=== PATIENT | female | born 2000 | race American Indian/Alaskan Native ===

== ENCOUNTER 2020-09-30 12:27 | Emergency (ER) | payer OTHER ==
[2020-09-30 12:49] VITALS: BP 113/72; PULSE 78
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
[2020-09-30] MEDS ORDERED: cefTRIAXone 1 GM, Lidocaine 1% 2.1 ML IM ONE ×2 (13:53)
[2020-09-30] MEDS ORDERED: Doxycycline Monohydrate 100 MG Cap PO ONE (13:53)
[2020-10-06 13:43] LABS: C.TRACHOMATIS BY TMA Negative (Negative); N.GONORRHOEAE BY TMA Negative (Negative)
== END 2020-09-30 14:41 | disposition home or self-care (01) ==
LOC: DL.ED 12:27
DX: T76.21XA Adult sexual abuse, suspected, initial encounter (principal); Z20.2 Contact with and (suspected) exposure to infections with a predominantly sexual mode of transmission; Z72.0 Tobacco use
CPT/HCPCS: 80074; 81003; 81025; 87389; 87491; 87563; 87591; 96372; 99284; A9270; J0696; 36415; 99283

== ENCOUNTER 2020-10-04 22:48 | Emergency (ER) | payer OTHER ==
[2020-10-04 22:56] VITALS: BP 113/81; PULSE 88
[2020-10-04] MEDS ORDERED: Ondansetron 4 MG Tab.DIS PO ONE (23:06)
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
== END 2020-10-04 23:44 | disposition home or self-care (01) ==
LOC: DL.ED 22:48
DX: R11.0 Nausea (principal); F41.9 Anxiety disorder, unspecified; Z79.899 Other long term (current) drug therapy
CPT/HCPCS: 80305; 81003; 81025; 99282; 99283; A9270

== ENCOUNTER 2021-02-19 05:29 | Emergency (ER) | payer BC, OTHER ==
[2021-02-19 05:38] VITALS: BP 121/76; PULSE 117
[2021-02-19] MEDS ORDERED: Sodium Chloride 0.9% 1,000 ML IV ONE (06:59)
[2021-02-19] MEDS ORDERED: Amoxicillin/Clavulanate K 875-125 MG Tab PO ONE (06:59)
[2021-02-19] MEDS ORDERED: Ketorolac 30 MG/ML SDV IVPUSH ONE (06:59)
--- NOTE | 2021-02-19 07:05 | EDM.PDOC ---
ED HPI GENERAL MEDICAL PROBLEM - General Chief Complaint: ENT Problem Stated Complaint: SINUS IS GETTING WORSE, DRAINAGE IS HORRIBLE Time Seen by Provider: 02/19/21 06:55 Source of Information: Reports: Patient History Limitations: Reports: No Limitations - History of Present Illness INITIAL COMMENTS - FREE TEXT/NARRATIVE: This 20 yo female patient reports to the ED with a migraine headache and a sinus infection. The patient reports she was seen in the Clinic twice over the past 1 1/2 weeks ([facility] and [facility]) and has been treated with a nasal spray as well as with pseudoephedrine with little to no changes in symptoms. Onset Date: 02/08/21 Duration: Constant, Getting Worse Location: Reports: Head, Face Quality: Reports: Ache, Dull, Pressure Severity: Moderate Improves with: Reports: None Worsens with: Reports: None Context: Reports: Other Associated Symptoms: Reports: cough w sputum, Fever/Chills Treatments CHIEF CLINICAL OFFICER: Reports: Acetaminophen, NSAIDS Face/Facial Pain Score (Numeric/FACES): 9 - Related Data Allergies Allergy/AdvReac Type Severity Reaction Status Date / Time No Known Allergies Allergy Verified 02/19/21 05:38 Past Medical History - Past Health History Medical/Surgical History: Denies Medical/Surgical History HEENT History: Reports: Impaired Vision Other HEENT History: wears glasses Cardiovascular History: Reports: None Respiratory History: Reports: None Gastrointestinal History: Reports: Cholelithiasis, GERD Genitourinary History: Reports: None 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 arm Neurological History: Reports: Migraines Psychiatric History: Reports: Anxiety, Depression Endocrine/Metabolic History: Reports: None Hematologic History: Reports: None Immunologic History: Reports: None Oncologic (Cancer) History: Reports: None Dermatologic History: Reports: None - Infectious Disease History Infectious Disease History: Reports: Novel Coronavirus - Past Surgical History Head Surgeries/Procedures: Reports: None HEENT Surgical History: Reports: None GI Surgical History: Reports: Cholecystectomy Social & Family History - Family History Family Medical History: No Pertinent Family History - Tobacco Use Tobacco Use Status *Q: Never Tobacco User Second Hand Smoke Exposure: No - Caffeine Use Caffeine Use: Reports: None - Recreational Drug Use Recreational Drug Use: No - Living Situation & Occupation Living situation: Reports: with Family ED ROS ENT - Review of Systems Review Of Systems: Comprehensive ROS is negative, except as noted in HPI. ED EXAM, ENT - Physical Exam Exam: See Below Exam Limited By: No Limitations General Appearance: Alert, WD/WN, Moderate Distress Eye Exam: Bilateral Eye: EOMI, Normal Inspection, PERRL Ears: Normal External Exam, Normal Canal, Hearing Grossly Normal, Other Nose: Clear Rhinorrhea (TM retraction) Mouth/Throat: Normal Inspection, Normal Gums, Normal Lips, Normal Oropharynx, Normal Teeth Head: Facial Tenderness, Sinus Tenderness Neck: Normal Inspection, Supple, Non-Tender, Full Range of Motion Respiratory/Chest: No Respiratory Distress, Lungs Clear, Normal Breath Sounds, No Accessory Muscle Use, Chest Non-Tender Cardiovascular: Normal Peripheral Pulses, Regular Rate, Rhythm, No Edema, No Gallop, No JVD, No Murmur, No Rub GI/Abdominal: Normal Bowel Sounds, Soft, Non-Tender, No Organomegaly, No Distention, No Abnormal Bruit, No Mass (Female) Exam: Deferred Rectal (Female) Exam: Deferred Back: Normal Inspection, Full Range of Motion Extremities: Normal Inspection, Normal Range of Motion, Non-Tender, No Pedal Edema, Normal Capillary Refill Neurological: Alert, Oriented, CN II-XII Intact, Normal Cognition, Normal Gait, Normal Reflexes, No Motor/Sensory Deficits Psychiatric: Normal Affect, Normal Mood Skin: Warm, Dry, Intact, Normal Color, No Rash Lymphatic: No Adenopathy Course - Vital Signs Last Recorded V/S: Last Vital Signs Temp 98.2 F 02/19/21 05:34 Pulse 117 H 02/19/21 05:34 Resp 18 02/19/21 05:34 BP 121/76 02/19/21 05:34 Pulse Ox 96 02/19/21 05:34 - Orders/Labs/Meds Meds: Medications Discontinued Medications Generic Name Dose Route Start Last Admin Trade Name Freq PRN Reason Stop Dose Admin Amoxicillin/Clavulanate Potassium 1 tab 02/19/21 06:59 02/19/21 07:06 Amoxicillin/Clavulanate K 875-125 Mg Tab PO 02/19/21 07:00 1 tab ONETIME ONE Administration Sodium Chloride 1,000 mls @ 999 mls/hr 02/19/21 06:59 02/19/21 07:06 Normal Saline IV 02/19/21 07:59 999 mls/hr .BOLUS ONE Administration Ketorolac Tromethamine 30 mg 02/19/21 06:59 02/19/21 07:06 Ketorolac 30 Mg/Ml Sdv IVPUSH 02/19/21 07:00 30 mg ONETIME ONE Administration Departure - Departure Time of Disposition: 08:38 Disposition: Home, Self-Care 01 Condition: Fair Clinical Impression: Acute sinusitis Qualifiers: Sinusitis location: frontal Recurrence: non-recurrent Qualified Code(s): J01.10 - Acute frontal sinusitis, unspecified Migraine Qualifiers: Migraine type: unspecified Status migrainosus presence: without status migrainosus Intractability: intractable Qualified Code(s): G43.919 - Migraine, unspecified, intractable, without status migrainosus - Discharge Information *PRESCRIPTION DRUG MONITORING PROGRAM REVIEWED*: Not Applicable *COPY OF PRESCRIPTION DRUG MONITORING REPORT IN PATIENT [place]: Not Applicable Instructions: Sinusitis, Adult, [id number], Migraine Headache, [id number] Forms: ED Department Discharge Care Plan Goals: The patient was advised of the examination results during the visit. The patient was given a liter of IV fluids, IV Toradol and oral Augmentin during the visit. The patient was discharged with a script for Augmentin (500/125) #20 to take 1 by mouth 2 times per day for 10 days. If the patient has any additional symptoms or concerns, the patient should either return to the emergency department or visit her primary care facility. Sepsis Event Note (ED) - Evaluation Sepsis Screening Result: No Definite Risk - Focused Exam Vital Signs: Vital Signs Temp Pulse Resp BP Pulse Ox 02/19/21 05:34 98.2 F 117 H 18 121/76 96
== END 2021-02-19 08:42 | disposition home or self-care (01) ==
LOC: DL.ED 05:29
DX: G43.919 Migraine, unspecified, intractable, without status migrainosus (principal); J01.10 Acute frontal sinusitis, unspecified
CPT/HCPCS: 96374; 99283; A9270; J1885; J7030

== ENCOUNTER 2021-03-10 05:22 | Emergency (ER) | payer BC, OTHER ==
[2021-03-10 05:44] VITALS: BP 111/71; PULSE 84
[2021-03-10] MEDS ORDERED: Sodium Chloride 0.9% 1,000 ML IV ONE (06:45)
[2021-03-10] MEDS ORDERED: Ondansetron 4 MG/2 ML SDV IVPUSH ONE (06:49)
--- NOTE | 2021-03-10 06:58 | EDM.PDOC ---
"ED HPI GENERAL MEDICAL PROBLEM - General Source of Information: Reports: Patient History Limitations: Reports: No Limitations - History of Present Illness Onset Date: 03/08/21 Duration: Constant Location: Reports: Head Quality: Reports: Other Severity: Moderate Improves with: Reports: None Worsens with: Reports: None Context: Reports: Other Associated Symptoms: Reports: Nausea/Vomiting Headache Pain Score (Numeric/FACES): 9 <Landry Bruce - Last Filed: 03/10/21 06:47> - General Source of Information: Reports: Patient, Old Records, RN, RN Notes Reviewed History Limitations: Reports: No Limitations <Saturnino Arshad - Last Filed: 03/10/21 09:22> - General Chief Complaint: Head Injury Stated Complaint: PT BLACKING OUT HAD MIGRAINES FOR 2DAYS Time Seen by Provider: 03/10/21 06:40 - History of Present Illness INITIAL COMMENTS - FREE TEXT/NARRATIVE: This 20 yo female patient reports to the ED due to a headache over the past 3 days. The patient reports she has had multiple episodes of blacking out and has hit her head several times due to blacking out. The patient does have a history of migraine headaches with similar symptoms. The patient reports she has been eating and drinking normally, but also feels nauseated. (Landry Bruce) I assumed care of pt from Landry CAMPO at 0700HR shift change. Pt continues to c/o headache. She claims she has fainted about 3 time earlier this week. She is unsure if the fainting is related to her headache or pain or if it is from something else. Denies dizziness, lightheadedness, chest pain, palpitations, or shortness of breath. Hx of migraine headaches. Denies other PMHx. (Saturnino Arshad) - Related Data Allergies Allergy/AdvReac Type Severity Reaction Status Date / Time No Known Allergies Allergy Verified 03/10/21 05:44 Home Meds: Home Meds . [No Known Home Meds] 03/10/21 [History] Past Medical History - Past Health History Medical/Surgical History: Denies Medical/Surgical History HEENT History: Reports: Impaired Vision Other HEENT History: wears glasses Cardiovascular History: Reports: None Respiratory History: Reports: None Gastrointestinal History: Reports: Cholelithiasis, GERD Genitourinary History: Reports: None [employer]ON[employer]CTIVE SURGEON History: Reports: Other (See Below) Musculoskeletal History: Reports: Fracture Other Musculoskeletal History: Rt. arm Neurological History: Reports: Migraines Psychiatric History: Reports: Anxiety, Depression Endocrine/Metabolic History: Reports: None Hematologic History: Reports: None Immunologic History: Reports: None Oncologic (Cancer) History: Reports: None Dermatologic History: Reports: None - Infectious Disease History Infectious Disease History: Reports: Novel Coronavirus - Past Surgical History Head Surgeries/Procedures: Reports: None HEENT Surgical History: Reports: None GI Surgical History: Reports: Cholecystectomy <Landry Bruce Cosme - Last Filed: 03/10/21 06:47> Social & Family History - Family History Family Medical History: No Pertinent Family History - Tobacco Use Tobacco Use Status *Q: Never Tobacco User Second Hand Smoke Exposure: Yes - Caffeine Use Caffeine Use: Reports: None - Recreational Drug Use Recreational Drug Use: No - Living Situation & Occupation Living situation: Reports: with Family <Landry Bruce - Last Filed: 03/10/21 06:47> - Family History Family Medical History: No Pertinent Family History <Saturnino Arshad - Last Filed: 03/10/21 09:22> ED ROS GENERAL - Review of Systems Review Of Systems: Comprehensive ROS is negative, except as noted in HPI. <Landry Bruce - Last Filed: 03/10/21 06:47> - Review of Systems Review Of Systems: Comprehensive ROS is negative, except as noted in HPI. <Saturnino Arshad - Last Filed: 03/10/21 09:22> ED EXAM, HEAD INJURY - Physical Exam Exam: See Below Exam Limited By: No Limitations General Appearance: Alert, WD/WN, Moderate Distress, Obese Head: Atraumatic, Normocephalic Nexus Criteria: No: Posterior, Midline Cervical Tenderness, Evidence of Intoxication, Altered Level of Consciousness, Focal Neurological Deficit, Painful Distraction Injuries Eyes: Bilateral Eye: EOMI, Normal Inspection, PERRL Ears: Normal External Exam, Normal Canal, Hearing Grossly Normal, Normal TMs Nose: Normal Inspection, Normal Mucousa, No Blood Throat/Mouth: Normal Inspection, Normal Lips, Normal Teeth, Normal Gums, Normal Oropharynx, Normal Voice, No Airway Compromise Neck: Non-Tender, Full Range of Motion, Normal Alignment, Normal Inspection Respiratory: No Respiratory Distress, Lungs Clear, Normal Breath Sounds, No Accessory Muscle Use, Chest Non-Tender Cardiovascular: Normal Peripheral Pulses, Regular Rate, Rhythm, No Edema, No Gallop, No JVD, No Murmur, No Rub GI/Abdominal Exam: Normal Bowel Sounds, Soft, Non-Tender, No Organomegaly, No Distention, No Abnormal Bruit, No Mass (Female) Exam: Deferred Rectal (Female) Exam: Deferred Back Exam: Full Range of Motion, Normal Inspection, NT Extremities: Normal Inspection, Normal Range of Motion, Non-Tender, No Pedal Edema, Normal Capillary Refill Neurologic: centrifugal wax molder II-XII nml As Tested, No Motor/Sensory Deficits, Alert, Normal Mood/Affect, Oriented x 3 Skin: Normal Color, Warm/Dry - Bouse Coma Score Best Eye Response (Arturo): (4) Open Spontaneously Best Verbal Response (Arturo): (5) Oriented Best Motor Response (Arturo): (6) Obeys Commands Arturo Total: 15 <Landry Bruce - Last Filed: 03/10/21 06:47> - Physical Exam Exam: See Below <Saturnino Arshad - Last Filed: 03/10/21 09:22> ED LACERATION/WOUND & ADDISON PROC <Saturnino Arshad - Last Filed: 03/10/21 09:22> - Additional/Other Procedure(s) Other (Free Text) Procedure(s): Intranasal palatine block with Viscous Lidocaine 2% B/L x5 mins. each side with complete relief of headache. (Saturnino Arshad) #1 Interpretation EKG Date: 03/10/21 Time: 08:41 Rhythm: Other (SR) Rate (Beats/Min): 76 Semora: Normal P-Wave: Present QRS: Normal ST-T: Other (early reol pattern) QT: Prolonged (borderline) Comparison: NA - No Prior EKG <Saturnino Arshad - Last Filed: 03/10/21 09:22> Course <Saturnino Arshad - Last Filed: 03/10/21 09:22> - Vital Signs Last Recorded V/S: Last Vital Signs Temp 97.6 F 03/10/21 05:35 Pulse 84 03/10/21 05:35 Resp 18 03/10/21 05:35 BP 111/71 03/10/21 05:35 Pulse Ox 99 03/10/21 05:35 - Orders/Labs/Meds Orders: Active Orders 24 hr Category Date Time Status EKG 12 Lead [EKG Documentation Completion] [RC] STAT Care 03/10/21 07:34 Active Labs: Laboratory Tests 03/10/21 03/10/21 03/10/21 Range/Units 05:51 06:53 06:53 WBC 6.6 (5.0-10.0) 10^3/uL RBC 4.46 (4.2-5.4) 10^6/uL Hgb 13.7 (12.0-16.0) g/dL Hct 38.6 (37.0-47.0) % MCV 86.5 (80-100) fL MCH 30.7 (27.0-34.0) pg MCHC 35.5 H (33.0-35.0) g/dL Plt Count 239 (150-450) 10^3/uL Neut % (Auto) 52.6 (42.2-75.2) % Lymph % (Auto) 35.3 (20.5-50.1) % Roberts % (Auto) 7.7 (2-8) % Eos % (Auto) 4.1 H (1.0-3.0) % Baso % (Auto) 0.3 (0.0-1.0) % D-Dimer, Quantitative (0-400) ng/mL Sodium 144 (136-145) mmol/L Potassium 3.8 (3.5-5.1) mmol/L Chloride 103 (98-107) mmol/L Carbon Dioxide 24 (21-32) mmol/L Anion Gap 20.8 H (7-13) mEq/L BUN 12 (7-18) mg/dL Creatinine 0.74 (0.55-1.02) mg/dL Est Cr Clr Drug Dosing 104.72 mL/min Estimated GFR (MDRD) > 60 BUN/Creatinine Ratio 16.2 (No establ ref range) Glucose 113 H (70-99) mg/dL Calcium 8.4 L (8.5-10.1) mg/dL Magnesium (1.8-2.4) mg/dL Total Bilirubin 0.4 (0.2-1.0) mg/dL AST 18 (15-37) U/L ALT 31 (14-59) U/L Alkaline Phosphatase 73 (46-116) U/L Troponin I High Sens (<=51) pg/mL Total Protein 7.6 (6.4-8.2) g/dL Albumin 3.5 (3.4-5.0) g/dL Globulin 4.1 Albumin/Globulin Ratio 0.85 Urine HCG, Qual Negative 03/10/21 03/10/21 Range/Units 06:53 06:53 WBC (5.0-10.0) 10^3/uL RBC (4.2-5.4) 10^6/uL Hgb (12.0-16.0) g/dL Hct (37.0-47.0) % MCV (80-100) fL MCH (27.0-34.0) pg MCHC (33.0-35.0) g/dL Plt Count (150-450) 10^3/uL Neut % (Auto) (42.2-75.2) % Lymph % (Auto) (20.5-50.1) % Roberts % (Auto) (2-8) % Eos % (Auto) (1.0-3.0) % Baso % (Auto) (0.0-1.0) % D-Dimer, Quantitative < 100 (0-400) ng/mL Sodium (136-145) mmol/L Potassium (3.5-5.1) mmol/L Chloride (98-107) mmol/L Carbon Dioxide (21-32) mmol/L Anion Gap (7-13) mEq/L BUN (7-18) mg/dL Creatinine (0.55-1.02) mg/dL Est Cr Clr Drug Dosing mL/min Estimated GFR (MDRD) BUN/Creatinine Ratio (No establ ref range) Glucose (70-99) mg/dL Calcium (8.5-10.1) mg/dL Magnesium 1.9 (1.8-2.4) mg/dL Total Bilirubin (0.2-1.0) mg/dL AST (15-37) U/L ALT (14-59) U/L Alkaline Phosphatase (46-116) U/L Troponin I High Sens 5 (<=51) pg/mL Total Protein (6.4-8.2) g/dL Albumin (3.4-5.0) g/dL Globulin Albumin/Globulin Ratio Urine HCG, Qual Meds: Medications Discontinued Medications Generic Name Dose Route Start Last Admin Trade Name Rebecca PRN Reason Stop Dose Admin Sodium Chloride 1,000 mls @ 999 mls/hr 03/10/21 06:45 03/10/21 06:56 Normal Saline IV 03/10/21 07:45 999 mls/hr .BOLUS ONE Administration Lidocaine HCl 15 ml 03/10/21 08:28 03/10/21 08:29 Lidocaine 2% Viscous Solution 15 Ml Cup PO 03/10/21 08:29 15 ml ONETIME ONE Administration Ondansetron HCl 4 mg 03/10/21 06:49 03/10/21 06:58 Ondansetron 4 Mg/2 Ml Sdv IVPUSH 03/10/21 06:50 4 mg ONETIME ONE Administration - Radiology Interpretation Free Text/Narrative:: [facility] Final Radiology Report Call: [phone] assistance Online chat: [email or web address] Name: ROSA BROOKS Age: 20Years F Date: 03/10/2021 SSN: -- : [id number] Study: CR CHEST 1V FRONTAL Requesting Physician: SATURNINO ARSHAD Images: 1 Addl Studies: Provided Clinical History: syncope Contrast: Contrast Medium: Contrast Amount: Contrast Method: CONFIDENTIALITY STATEMENT This report is intended only for use by the referring physician, and only in accordance with law. If you received this in error, call [phone]. Page 1 of 1 PROCEDURE INFORMATION: Exam: XR Chest Exam date and time: 03/10/2021 7:40 AM Age: 20 years old Clinical indication: Other: Syncope TECHNIQUE: Imaging protocol: XR of the chest. Views: 1 view. COMPARISON: No relevant prior studies available. FINDINGS: Lungs: The lungs are clear bilaterally. The pulmonary vasculature is normal. Pleural spaces: No pleural effusion. No pneumothorax. Heart/Mediastinum: The heart is normal in size and contour. Bones/joints: No acute chest wall abnormality identified. Organs: The gallbladder is likely surgically absent, with metallic clips overlying the gallbladder fossa. IMPRESSION: 1. No acute cardiopulmonary abnormality identified. 2. Prior cholecystectomy. Thank you for allowing us to participate in the care of your patient. Dictated and Authenticated by: Carlos Harden MD 03/10/2021 7:52 AM Central Time ([place] & [place]) [facility] Final Radiology Report Call: [phone] assistance Online chat: [email or web address] Name: ROSA BROOKS Age: 20Years F Date: 03/10/2021 SSN: -- : 2000 Study: CT HEAD WO CONT Requesting Physician: Landry Bruce Images: 144 Addl Studies: Provided Clinical History: Headaches with multiple falls over the past 3 days Contrast: Without Contrast Medium: Contrast Amount: Contrast Method: Page 1 of 2 PROCEDURE INFORMATION: Exam: CT Head Without Contrast Exam date and time: 03/10/2021 7:04 AM Age: 20 years old Clinical indication: Walking, difficulty; Additional info: Headaches with multiple falls over the past 3 days TECHNIQUE: Imaging protocol: Computed tomography of the head without contrast. Radiation optimization: All CT scans at this facility use at least one of these dose optimization techniques: automated exposure control; mA and/or kV adjustment per patient size (includes targeted exams where dose is matched to clinical indication); or iterative reconstruction. COMPARISON: No relevant prior studies available. FINDINGS: Brain: Normal. No hemorrhage. Unremarkable white matter. No mass effect. Ventricles: No hydrocephalus or evidence of increased intracranial pressure. Paranasal sinuses: Visualized sinuses are unremarkable. No fluid levels. Mastoid air cells: Visualized mastoid air cells are well aerated. Bones/joints: No acute abnormality. No acute fracture. Soft tissues: Unremarkable. IMPRESSION: No acute intracranial abnormality identified. Thank you for allowing us to participate in the care of your patient. Dictated and Authenticated by: Carlos Harden MD ROSA BROOKS | Final Radiology Report CONFIDENTIALITY STATEMENT This report is intended only for use by the referring physician, and only in accordance with law. If you received this in error, call [phone]. Page 2 of 2 03/10/2021 7:24 AM Central Time ([place] & [place]) (Saturnino Arshad) Departure <Landry Bruce - Last Filed: 03/10/21 06:47> - Departure Time of Disposition: 09:17 Condition: Good - Discharge Information *PRESCRIPTION DRUG MONITORING PROGRAM REVIEWED*: Not Applicable *COPY OF PRESCRIPTION DRUG MONITORING REPORT IN PATIENT [place]: Not Applicable <Saturnino Arshad - Last Filed: 03/10/21 09:22> - Departure Disposition: Home, Self-Care 01 Clinical Impression: Migraine Qualifiers: Migraine type: unspecified Status migrainosus presence: without status migrainosus Intractability: intractable Qualified Code(s): G43.919 - Migraine, unspecified, intractable, without status migrainosus Syncope Qualifiers: Syncope type: unspecified Qualified Code(s): R55 - Syncope and collapse - Discharge Information Instructions: Migraine Headache, Syncope, [id number] Forms: ED Department Discharge Additional Instructions: Follow up in clinic for further evaluation of your black out (syncope) episodes. Sepsis Event Note (ED) - Focused Exam Vital Signs: Vital Signs Temp Pulse Resp BP Pulse Ox 03/10/21 05:35 97.6 F 84 18 111/71 99 - My Orders Last 24 Hours: My Active Orders 03/10/21 07:34 EKG 12 Lead [EKG Documentation Completion] [RC] STAT - Assessment/Plan Last 24 Hours: My Active Orders 03/10/21 07:34 EKG 12 Lead [EKG Documentation Completion] [RC] STAT"
[2021-03-10 07:18] LABS: ANION GAP 20.8 mEq/L (7-13); CHLORIDE,CL 103 mmol/L (98-107); SODIUM,NA 144 mmol/L (136-145)
--- NOTE | 2021-03-10 07:25 | CT ---
PROCEDURE INFORMATION: Exam: CT Head Without Contrast Exam date and time: 03/10/2021 7:04 AM Age: 20 years old Clinical indication: Walking, difficulty; Additional info: Headaches with multiple falls over the past 3 days TECHNIQUE: Imaging protocol: Computed tomography of the head without contrast. Radiation optimization: All CT scans at this facility use at least one of these dose optimization techniques: automated exposure control; mA and/or kV adjustment per patient size (includes targeted exams where dose is matched to clinical indication); or iterative reconstruction. COMPARISON: No relevant prior studies available. FINDINGS: Brain: Normal. No hemorrhage. Unremarkable white matter. No mass effect. Ventricles: No hydrocephalus or evidence of increased intracranial pressure. Paranasal sinuses: Visualized sinuses are unremarkable. No fluid levels. Mastoid air cells: Visualized mastoid air cells are well aerated. Bones/joints: No acute abnormality. No acute fracture. Soft tissues: Unremarkable. IMPRESSION: No acute intracranial abnormality identified.
--- NOTE | 2021-03-10 07:53 | CR ---
PROCEDURE INFORMATION: Exam: XR Chest Exam date and time: 03/10/2021 7:40 AM Age: 20 years old Clinical indication: Other: Syncope TECHNIQUE: Imaging protocol: XR of the chest. Views: 1 view. COMPARISON: No relevant prior studies available. FINDINGS: Lungs: The lungs are clear bilaterally. The pulmonary vasculature is normal. Pleural spaces: No pleural effusion. No pneumothorax. Heart/Mediastinum: The heart is normal in size and contour. Bones/joints: No acute chest wall abnormality identified. Organs: The gallbladder is likely surgically absent, with metallic clips overlying the gallbladder fossa. IMPRESSION: 1. No acute cardiopulmonary abnormality identified. 2. Prior cholecystectomy.
[2021-03-10] MEDS ORDERED: Lidocaine 2% Jelly 10 ML Urojet MUCMEM ONE (08:20)
[2021-03-10] MEDS ORDERED: Lidocaine 2% Viscous Solution 15 ML Cup PO ONE (08:28)
== END 2021-03-10 09:26 | disposition home or self-care (01) ==
LOC: DL.ED 05:22
DX: G43.919 Migraine, unspecified, intractable, without status migrainosus (principal); R55 Syncope and collapse
CPT/HCPCS: 36415; 64400; 70450; 71045; 80053; 81025; 83735; 84484; 85025; 85379; 93005; 96374; 99283; 99284-25; A9270-GY; J2405; J7030

== ENCOUNTER 2021-04-21 17:44 | Emergency (ER) | payer BC, OTHER ==
[2021-04-21] MEDS ORDERED: Naloxone 2 MG/2 ML Syringe ONE (17:51)
[2021-04-21] MEDS ORDERED: Naloxone 2 MG/2 ML Syringe IVPUSH ONE (18:01)
[2021-04-21 18:32] LABS: ANION GAP 10.8 mEq/L (7-13); CHLORIDE,CL 102 mmol/L (98-107); SODIUM,NA 139 mmol/L (136-145)
[2021-04-21 18:34] VITALS: BP 110/80; PULSE 82
[2021-04-21 18:45] LABS: AMPHETAMINES,URINE NEGATIVE (NEGATIVE); BARBITURATES,URINE NEGATIVE (NEGATIVE); BENZODIAZEPINE,URINE NEGATIVE (NEGATIVE); MDMA (ECSTASY), URINE NEGATIVE (NEGATIVE); METHADONE,URINE NEGATIVE (NEGATIVE); METHAMPHETAMINES,URINE POSITIVE (NEGATIVE); OPIATES,URINE NEGATIVE (NEGATIVE); OXYCODONE,URINE NEGATIVE (NEGATIVE); PHENCYCLIDINE,URINE NEGATIVE (NEGATIVE); TCA,URINE NEGATIVE (NEGATIVE)
--- NOTE | 2021-04-21 18:50 | EDM.PDOCBH ---
Scribed by Keyona Strickland 04/21/21 [id number] for Chantell Bishop NP <Chantell Bishop - Last Filed: 04/21/21 19:18> ED HPI GENERAL MEDICAL PROBLEM - General Chief Complaint: Drug or Alcohol Abuse Stated Complaint: AMBULANCE Time Seen by Provider: 04/21/21 17:50 Source of Information: Reports: Patient, EMS, EMS Notes Reviewed, RN, RN Notes Reviewed History Limitations: Reports: Altered Mental Status - History of Present Illness INITIAL COMMENTS - FREE TEXT/NARRATIVE: Patient is a 21-year-old female who presents to ER per [facility] with altered mental status. Patient was started (per EMS) to have suicidal ideation. EMS reports patient took 200mcg of Levothyroxine of her mother's prescription. [place] she told family she wanted to . EMS report increased lethargy on the way to ER, decreased response to physical stimuli. Onset: Today Severity: Severe - Related Data Allergies Allergy/AdvReac Type Severity Reaction Status Date / Time No Known Allergies Allergy Verified 04/21/21 17:57 Home Meds: Home Meds . [No Known Home Meds] 03/10/21 [History] Past Medical History - Past Health History Medical/Surgical History: Denies Medical/Surgical History HEENT History: Reports: Impaired Vision Other HEENT History: wears glasses Cardiovascular History: Reports: None Respiratory History: Reports: None Gastrointestinal History: Reports: Cholelithiasis, GERD Genitourinary History: Reports: None [employer] History: Reports: Other (See Below) Musculoskeletal History: Reports: Fracture Other Musculoskeletal History: Rt. arm Neurological History: Reports: Migraines Psychiatric History: Reports: Anxiety, Depression Endocrine/Metabolic History: Reports: None Hematologic History: Reports: None Immunologic History: Reports: None Oncologic (Cancer) History: Reports: None Dermatologic History: Reports: None - Infectious Disease History Infectious Disease History: Reports: Novel Coronavirus - Past Surgical History Head Surgeries/Procedures: Reports: None HEENT Surgical History: Reports: None GI Surgical History: Reports: Cholecystectomy Social & Family History - Family History Family Medical History: No Pertinent Family History - Caffeine Use Caffeine Use: Reports: None - Living Situation & Occupation Living situation: Reports: with Family ED ROS GENERAL - Review of Systems Review Of Systems: Comprehensive ROS is negative, except as noted in HPI. ED EXAM, BEHAVIORAL HEALTH - Physical Exam Exam: See Below Exam Limited By: Altered Mental Status General Appearance: Lethargic Eye Exam: Bilateral Eye: Other (4 bilateral reactive) Ears: Normal External Exam, Normal Canal, Hearing Grossly Normal, Normal TMs Nose: Normal Inspection, Normal Mucosa, No Blood Throat/Mouth: Normal Inspection, Normal Lips, Normal Teeth, Normal Gums, Normal Oropharynx, Normal Voice, No Airway Compromise Head: Atraumatic, Normocephalic Neck: Normal Inspection, Supple, Non-Tender, Full Range of Motion Respiratory/Chest: No Respiratory Distress, Lungs Clear, Normal Breath Sounds, No Accessory Muscle Use, Chest Non-Tender Cardiovascular: Normal Peripheral Pulses, Regular Rate, Rhythm, No Edema, No Gallop, No JVD, No Murmur, No Rub GI/Abdominal: Normal Bowel Sounds, Soft, Non-Tender (Female) Exam: Deferred Rectal (Female) Exam: Deferred Back Exam: Normal Inspection, Full Range of Motion Extremities: Normal Inspection, Normal Range of Motion, Non-Tender, Normal Capillary Refill, No Pedal Edema Neurological: Disoriented to Time, Memory Loss Recent Events, Slow Response to Commands, Withdraws to Pain Psychiatric: Non-Communicative, Suicidal Thoughts Skin Exam: Warm, Dry, Normal color, No rash, Other (self harm to wrists bilaterally, superficial, several cuts) #1 Interpretation EKG Date: 04/21/21 Time: 18:15 Rhythm: Other (sinus rhythm) Rate (Beats/Min): 89 [place]: Normal P-Wave: Present QRS: Normal ST-T: Normal QT: Normal Departure - Departure Disposition: Home, Self-Care 01 Clinical Impression: Suicide gesture Qualifiers: Encounter type: initial encounter Qualified Code(s): X83.8XXA - Intentional self-harm by other specified means, initial encounter Depression Qualifiers: Depression Type: unspecified Qualified Code(s): F32.9 - Major depressive disorder, single episode, unspecified - Discharge Information Instructions: Managing Depression, Adult Forms: ED Department Discharge Additional Instructions: Follow up with Counselor in am 911 if thoughts of harm to self diet as tolerated <Sophia Da Silva - Last Filed: 04/21/21 20:54> COURSE, BEHAVIORAL HEALTH COMP - Course Vital Signs: Last Vital Signs Temp 98.4 F 04/21/21 18:34 Pulse 82 09/23/21 18:25 Resp 14 04/21/21 18:25 BP 110/80 04/21/21 18:25 Pulse Ox 96 04/21/21 18:25 Orders, Labs, Meds: Laboratory Tests 04/21/21 04/21/21 04/21/21 Range/Units 17:49 17:49 18:10 WBC 9.4 (5.0-10.0) 10^3/uL RBC 4.60 (4.2-5.4) 10^6/uL Hgb 13.4 (12.0-16.0) g/dL Hct 39.7 (37.0-47.0) % MCV 86.3 (80-100) fL MCH 29.1 (27.0-34.0) pg MCHC 33.8 (33.0-35.0) g/dL Plt Count 266 (150-450) 10^3/uL Neut % (Auto) 71.1 (42.2-75.2) % Lymph % (Auto) 20.5 (20.5-50.1) % [place] % (Auto) 5.4 (2-8) % Eos % (Auto) 2.7 (1.0-3.0) % Baso % (Auto) 0.3 (0.0-1.0) % Sodium 139 (136-145) mmol/L Potassium 3.8 (3.5-5.1) mmol/L Chloride 102 (98-107) mmol/L Carbon Dioxide 30 (21-32) mmol/L Anion Gap 10.8 (7-13) mEq/L BUN 12 (7-18) mg/dL Creatinine 0.87 (0.55-1.02) mg/dL Est Cr Clr Drug Dosing 106.90 mL/min Estimated GFR (MDRD) > 60 BUN/Creatinine Ratio 13.8 (No establ ref range) Glucose 97 (70-99) mg/dL Calcium 8.9 (8.5-10.1) mg/dL Total Bilirubin 0.4 (0.2-1.0) mg/dL AST 13 L (15-37) U/L ALT 29 (14-59) U/L Alkaline Phosphatase 69 (46-116) U/L Total Protein 8.1 (6.4-8.2) g/dL Albumin 3.8 (3.4-5.0) g/dL Globulin 4.3 Albumin/Globulin Ratio 0.9 TSH, Ultra Sensitive 0.33 L (0.36-3.74) uIU/mL Urine Color (YELLOW) Urine Appearance (CLEAR) Urine pH (5.0-9.0) Ur Specific [place] (1.005-1.030) Urine Protein (NEGATIVE) Urine Glucose (UA) (NEGATIVE) Urine Ketones (NEGATIVE) Urine Occult Blood (NEGATIVE) Urine Nitrite (NEGATIVE) Urine Bilirubin (NEGATIVE) Urine Urobilinogen (0.2-1.0) mg/dL Ur Leukocyte Esterase (NEGATIVE) Urine HCG, Qual Urine Opiates Screen (NEGATIVE) Ur Oxycodone Screen (NEGATIVE) Urine Methadone Screen (NEGATIVE) Ur Barbiturates Screen (NEGATIVE) U Tricyclic Antidepress (NEGATIVE) Ur Phencyclidine Scrn (NEGATIVE) Ur Amphetamine Screen (NEGATIVE) U Methamphetamines Scrn (NEGATIVE) Urine MDMA Screen (NEGATIVE) U Benzodiazepines Scrn (NEGATIVE) Urine Cocaine Screen (NEGATIVE) U Marijuana (THC) Screen (NEGATIVE) Ethyl Alcohol < 3 (0) mg/dL SARS-CoV-2 RNA ([place]) Negative (NEGATIVE) 04/21/21 04/21/21 04/21/21 Range/Units 18:11 18:11 18:11 WBC (5.0-10.0) 10^3/uL RBC (4.2-5.4) 10^6/uL Hgb (12.0-16.0) g/dL Hct (37.0-47.0) % MCV (80-100) fL MCH (27.0-34.0) pg MCHC (33.0-35.0) g/dL Plt Count (150-450) 10^3/uL Neut % (Auto) (42.2-75.2) % Lymph % (Auto) (20.5-50.1) % [place] % (Auto) (2-8) % Eos % (Auto) (1.0-3.0) % Baso % (Auto) (0.0-1.0) % Sodium (136-145) mmol/L Potassium (3.5-5.1) mmol/L Chloride (98-107) mmol/L Carbon Dioxide (21-32) mmol/L Anion Gap (7-13) mEq/L BUN (7-18) mg/dL Creatinine (0.55-1.02) mg/dL Est Cr Clr Drug Dosing mL/min Estimated GFR (MDRD) BUN/Creatinine Ratio (No establ ref range) Glucose (70-99) mg/dL Calcium (8.5-10.1) mg/dL Total Bilirubin (0.2-1.0) mg/dL AST (15-37) U/L ALT (14-59) U/L Alkaline Phosphatase (46-116) U/L Total Protein (6.4-8.2) g/dL Albumin (3.4-5.0) g/dL Globulin Albumin/Globulin Ratio TSH, Ultra Sensitive (0.36-3.74) uIU/mL Urine Color Yellow (YELLOW) Urine Appearance Slightly cloudy (CLEAR) Urine pH 6.0 (5.0-9.0) Ur Specific [place] >= 1.030 (1.005-1.030) Urine Protein Negative (NEGATIVE) Urine Glucose (UA) Negative (NEGATIVE) Urine Ketones Negative (NEGATIVE) Urine Occult Blood Negative (NEGATIVE) Urine Nitrite Negative (NEGATIVE) Urine Bilirubin Negative (NEGATIVE) Urine Urobilinogen 0.2 (0.2-1.0) mg/dL Ur Leukocyte Esterase Negative (NEGATIVE) Urine HCG, Qual Negative Urine Opiates Screen Negative (NEGATIVE) Ur Oxycodone Screen Negative (NEGATIVE) Urine Methadone Screen Negative (NEGATIVE) Ur Barbiturates Screen Negative (NEGATIVE) U Tricyclic Antidepress Negative (NEGATIVE) Ur Phencyclidine Scrn Negative (NEGATIVE) Ur Amphetamine Screen Negative (NEGATIVE) U Methamphetamines Scrn Positive H (NEGATIVE) Urine MDMA Screen Negative (NEGATIVE) U Benzodiazepines Scrn Negative (NEGATIVE) Urine Cocaine Screen Negative (NEGATIVE) U Marijuana (THC) Screen Positive H (NEGATIVE) Ethyl Alcohol (0) mg/dL SARS-CoV-2 RNA ([place]) (NEGATIVE) Medications Discontinued Medications Generic Name Dose Route Start Last Admin Trade Name Rebecca PRN Reason Stop Dose Admin Naloxone HCl Confirm 04/21/21 17:51 04/21/21 18:05 Naloxone 2 Mg/2 Ml Syringe Administered 04/21/21 17:52 Not Given Dose 2 mg .ROUTE .STK-MED ONE Naloxone HCl 2 mg 04/21/21 18:01 04/21/21 18:04 Naloxone 2 Mg/2 Ml Syringe IVPUSH 04/21/21 18:02 2 mg ONETIME ONE Administration Re-Assessment/Re-Exam: Crisis Counselor from [facility] here visiting with patient. Departure - Departure Time of Disposition: 20:51 Condition: Fair - Discharge Information *PRESCRIPTION DRUG MONITORING PROGRAM REVIEWED*: No *COPY OF PRESCRIPTION DRUG MONITORING REPORT IN PATIENT [place]: No Sepsis Event Note (ED) - Focused Exam Vital Signs: Vital Signs Temp Pulse Resp BP Pulse Ox 04/21/21 18:34 98.4 F 04/21/21 18:25 82 14 110/80 96 I have read and agree with the documentation that has been completed regarding this visit. By signing this record, I attest that the documentation was completed in my physical presence and is an accurate record of the encounter.
== END 2021-04-21 21:10 | disposition home or self-care (01) ==
LOC: DL.ED 17:44
DX: F32.9 Major depressive disorder, single episode, unspecified (principal); S61.512A Laceration without foreign body of left wrist, initial encounter; S61.511A Laceration without foreign body of right wrist, initial encounter; Z20.822 Contact with and (suspected) exposure to COVID-19; X78.8XXA Intentional self-harm by other sharp object, initial encounter
CPT/HCPCS: 80053; 80305; 80307; 81003; 81025; 84443; 85025; 87635; 93005; 96374; 99285; J2310; U0002

== ENCOUNTER 2021-08-24 09:37 | Emergency (ER) | payer BC, OTHER ==
[2021-08-24] MEDS: Sodium Chloride 0.9% 1,000 ML IV ONE (10:18)
[2021-08-24] MEDS: Ondansetron 4 MG/2 ML SDV IVPUSH ONE (10:37)
[2021-08-24 10:44] LABS: ANION GAP 14.6 mEq/L (7-13); CHLORIDE,CL 100 mmol/L (98-107); SODIUM,NA 137 mmol/L (136-145)
[2021-08-24 11:03] VITALS: BP 97/62; PULSE 73
[2021-08-24] MEDS: Acetaminophen 500 MG Tab PO ONE (11:57)
== END 2021-08-24 12:36 | disposition home or self-care (01) ==
LOC: DL.ED 09:37
DX: O99.891 Other specified diseases and conditions complicating pregnancy (principal); R10.9 Unspecified abdominal pain; O21.9 Vomiting of pregnancy, unspecified; Z3A.11 11 weeks gestation of pregnancy
CPT/HCPCS: 36415; 76801; 80053; 81001; 81025; 82150; 83690; 84702; 85025; 87086; 93975; 96374; 99284-25; A9270-GY; J2405; J7030

== ENCOUNTER 2022-02-27 22:22 | Observation (INO) | payer SELFPAY ==
[2022-02-27] MEDS ORDERED: ePHEDrine 50 MG/ML SDV IVPUSH PRN (22:59)
[2022-02-27] MEDS ORDERED: Carboprost Tromethamine 250 MCG/1 ML Amp IM PRN (22:59)
[2022-02-27] MEDS ORDERED: Tranexamic Acid 1,000 MG in Sodium Chloride 0.9% 100 ML IV PRN (22:59)
[2022-02-27] MEDS ORDERED: Ondansetron 4 MG/2 ML SDV IVPUSH PRN ×2 (22:59)
[2022-02-27] MEDS ORDERED: Misoprostol 400 MCG (4 X 100 MCG TAB) RECTAL PRN (22:59)
[2022-02-27] MEDS ORDERED: Lactated Ringers 1,000 ML IV ONE (22:59)
[2022-02-27] MEDS ORDERED: Penicillin G Potassium 5 MILLUNITS in Sodium Chloride 0.9% 100 ML IV ONE (22:59)
[2022-02-27] MEDS ORDERED: Naloxone 2 MG/2 ML Syringe IVPUSH PRN (22:59)
[2022-02-27] MEDS ORDERED: Lidocaine 1% 30 ML SDV INJECT PRN (22:59)
[2022-02-27] MEDS ORDERED: Acetaminophen 325 MG Tab PO PRN (22:59)
[2022-02-27] MEDS ORDERED: Promethazine 25 MG/ML SDV IM PRN (22:59)
[2022-02-27] MEDS ORDERED: Sodium Chloride 0.9% 10 ML Syringe FLUSH PRN (22:59)
[2022-02-27] MEDS ORDERED: Methylergonovine 0.2 MG/1 ML Amp IM PRN (22:59)
[2022-02-27] MEDS ORDERED: Lactated Ringers 500 ML IV SCH ×2 (23:00)
[2022-02-27] MEDS ORDERED: Lactated Ringers 1,000 ML IV SCH (23:00)
[2022-02-27] MEDS ORDERED: Oxytocin/Normal Saline 30 UNIT/500 ML BAG IV SCH (23:00)
[2022-02-27] MEDS ORDERED: fentaNYL 100 MCG/2 ML SDV IVPUSH PRN (23:03)
[2022-02-28 01:12] LABS: AMPHETAMINES,URINE NEGATIVE (NEGATIVE); BARBITURATES,URINE NEGATIVE (NEGATIVE); BENZODIAZEPINE,URINE NEGATIVE (NEGATIVE); MDMA (ECSTASY), URINE NEGATIVE (NEGATIVE); METHADONE,URINE NEGATIVE (NEGATIVE); METHAMPHETAMINES,URINE NEGATIVE (NEGATIVE); OPIATES,URINE NEGATIVE (NEGATIVE); OXYCODONE,URINE NEGATIVE (NEGATIVE); PHENCYCLIDINE,URINE NEGATIVE (NEGATIVE); TCA,URINE NEGATIVE (NEGATIVE)
[2022-02-28] MEDS ORDERED: Penicillin G Potassium 3 MILLUNITS in Sodium Chloride 0.9% 100 ML IV SCH (03:00)
[2022-02-28 08:38] VITALS: BP 103/61; PULSE 80
== END 2022-02-28 08:00 | disposition home or self-care (01) ==
LOC: DL.OBCHECK 22:22 → DL.OB 23:06
PROVIDERS: ADMIT Family Medicine; ATTEND Family Medicine
DX: O47.1 False labor at or after 37 completed weeks of gestation (principal); O99.341 Other mental disorders complicating pregnancy, first trimester; O99.820 Streptococcus B carrier state complicating pregnancy; O99.013 Anemia complicating pregnancy, third trimester; O12.13 Gestational proteinuria, third trimester; F41.9 Anxiety disorder, unspecified; F32.A Depression, unspecified; Z90.49 Acquired absence of other specified parts of digestive tract; Z87.891 Personal history of nicotine dependence; Z79.899 Other long term (current) drug therapy; Z3A.38 38 weeks gestation of pregnancy; Z20.822 Contact with and (suspected) exposure to COVID-19
CPT/HCPCS: 36415; 59025; 80305; 85027; 87635; A9270; J2540; J3490; J7120; 96365; 96376; G0378; U0002

== ENCOUNTER 2022-03-05 21:12 | Inpatient (IN) | payer OTHER ==
[~2022-03-05 21:12] MED LIST: Penicillin G Potassium 5 MILLUNITS in Sodium Chloride 0.9% 100 ML IV ONE
[2022-03-05] MEDS ORDERED: Penicillin G Potassium 5,000,000 Unit Vial ONE (21:29)
[2022-03-05] MEDS ORDERED: Lactated Ringers 1,000 ML IV ONE (21:37)
[2022-03-05] MEDS ORDERED: Sodium Chloride 0.9% 10 ML Syringe FLUSH PRN (21:37)
[2022-03-05] MEDS ORDERED: Methylergonovine 0.2 MG/1 ML Amp IM PRN (21:37)
[2022-03-05] MEDS ORDERED: Promethazine 25 MG/ML SDV IM PRN (21:37)
[2022-03-05] MEDS ORDERED: Ondansetron 4 MG/2 ML SDV IVPUSH PRN ×2 (21:37)
[2022-03-05] MEDS ORDERED: ePHEDrine 50 MG/ML SDV IVPUSH PRN (21:37)
[2022-03-05] MEDS ORDERED: Acetaminophen 325 MG Tab PO PRN (21:37)
[2022-03-05] MEDS ORDERED: Naloxone 2 MG/2 ML Syringe IVPUSH PRN (21:37)
[2022-03-05] MEDS ORDERED: Lidocaine 1% 30 ML SDV INJECT PRN (21:37)
[2022-03-05] MEDS ORDERED: Tranexamic Acid 1,000 MG in Sodium Chloride 0.9% 100 ML IV PRN (21:37)
[2022-03-05] MEDS ORDERED: Misoprostol 400 MCG (4 X 100 MCG TAB) RECTAL PRN (21:37)
[2022-03-05] MEDS ORDERED: Carboprost Tromethamine 250 MCG/1 ML Amp IM PRN (21:37)
[2022-03-05] MEDS ORDERED: fentaNYL 100 MCG/2 ML SDV IVPUSH PRN (21:37)
[2022-03-05] MEDS ORDERED: Lactated Ringers 500 ML IV ONE (21:45)
[2022-03-05] MEDS ORDERED: Lactated Ringers 500 ML IV SCH (21:45)
[2022-03-05] MEDS ORDERED: Oxytocin/Normal Saline 30 UNIT/500 ML BAG IV SCH (21:45)
[2022-03-05] MEDS ORDERED: Lactated Ringers 1,000 ML IV SCH (21:45)
[2022-03-06 00:05] LABS: AMPHETAMINES,URINE NEGATIVE (NEGATIVE); BARBITURATES,URINE NEGATIVE (NEGATIVE); BENZODIAZEPINE,URINE NEGATIVE (NEGATIVE); MDMA (ECSTASY), URINE NEGATIVE (NEGATIVE); METHADONE,URINE NEGATIVE (NEGATIVE); METHAMPHETAMINES,URINE NEGATIVE (NEGATIVE); OPIATES,URINE NEGATIVE (NEGATIVE); OXYCODONE,URINE NEGATIVE (NEGATIVE); PHENCYCLIDINE,URINE NEGATIVE (NEGATIVE); TCA,URINE NEGATIVE (NEGATIVE)
[2022-03-06] MEDS: Penicillin G Potassium 3 MILLUNITS in Sodium Chloride 0.9% 100 ML IV SCH ×2 (01:00→02:09)
[2022-03-06] MEDS ORDERED: fentaNYL 100 MCG/2 ML SDV IVPUSH PRN (01:49)
[2022-03-06] MEDS ORDERED: Simethicone 80 MG Tab.Chew PO PRN (05:21)
[2022-03-06] MEDS ORDERED: Benzocaine/Menthol 20%-0.5% Spray 78 GM Cannister TOP PRN (05:21)
[2022-03-06] MEDS: Ferrous Sulfate 325 MG Tab PO SCH (08:47)
[2022-03-06] MEDS: Ibuprofen 800 MG Tab PO PRN ×2 (08:47→19:31)
[2022-03-06] MEDS: Docusate Sodium 100 MG Cap PO PRN ×2 (08:47→19:32)
[2022-03-06] MEDS: Prenatal Multivitamin with Calcium/Folic Acid/Iron Tab PO SCH (08:47)
[2022-03-07] MEDS: Ibuprofen 800 MG Tab PO PRN ×2 (06:05→15:44)
[2022-03-07] MEDS: Prenatal Multivitamin with Calcium/Folic Acid/Iron Tab PO SCH (08:13)
[2022-03-07] MEDS: Docusate Sodium 100 MG Cap PO PRN (08:13)
[2022-03-07] MEDS: Ferrous Sulfate 325 MG Tab PO SCH (08:13)
[2022-03-08] MEDS: Docusate Sodium 100 MG Cap PO PRN (08:01)
[2022-03-08] MEDS: Ibuprofen 800 MG Tab PO PRN (08:01)
[2022-03-08] MEDS: Ferrous Sulfate 325 MG Tab PO SCH (08:01)
[2022-03-08] MEDS: Prenatal Multivitamin with Calcium/Folic Acid/Iron Tab PO SCH (08:01)
[2022-03-08 08:04] VITALS: BP 113/67; PULSE 96
== END 2022-03-08 11:15 | disposition home or self-care (01) | DRG 807 ==
LOC: DL.OBCHECK 21:12 → DL.OB 21:37 → OBSVTOIN 03-06 04:41
PROVIDERS: ADMIT Family Medicine; ATTEND Family Medicine
PROC: 10E0XZZ Delivery of Products of Conception, External Approach (ICD-10-PCS; principal; 2022-03-06)
PROC: 0UQKXZZ Repair Hymen, External Approach (ICD-10-PCS; 2022-03-06)
PROC: 10907ZC Drainage of Amniotic Fluid, Therapeutic from Products of Conception, Via Natural or Artificial Opening (ICD-10-PCS; 2022-03-06)
DX: O99.824 Streptococcus B carrier state complicating childbirth (principal); Z37.0 Single live birth; Z3A.38 38 weeks gestation of pregnancy; O66.0 Obstructed labor due to shoulder dystocia; O99.02 Anemia complicating childbirth; D64.9 Anemia, unspecified; O70.0 First degree perineal laceration during delivery; O99.334 Smoking (tobacco) complicating childbirth; F17.210 Nicotine dependence, cigarettes, uncomplicated; O99.344 Other mental disorders complicating childbirth; O12.14 Gestational proteinuria, complicating childbirth; Z20.822 Contact with and (suspected) exposure to COVID-19
CPT/HCPCS: 36415; 59409; 80305-QW; 85025; A9270-GY; J2540; J2590; J3010; J7120; U0002

== ENCOUNTER 2024-02-21 15:06 | Emergency (ER) | payer MEDICAID, OTHER ==
[2024-02-21 15:35] VITALS: BP 115/84; PULSE 77
[2024-02-21 15:50] LABS: BASOPHILS PERCENT AUTO 0.2 % (0.0-1.0); EOSINOPHILS PERCENT AUTO 1.6 % (1.0-3.0); HEMATOCRIT 41.4 % (37.0-47.0); HEMOGLOBIN 14.1 g/dL (12.0-16.0); LYMPHOCYTES PERCENT AUTO 20.6 % (20.5-50.1); MEAN CORPUSCULAR HEMOGLOBIN 29.7 pg (27.0-34.0); MEAN CORPUSCULAR HGB CONC 34.1 g/dL (33.0-35.0); MEAN CORPUSCULAR VOLUME 87.3 fL (80-100); MONOCYTES PERCENT AUTO 5.8 % (2-8); NEUTROPHILS PERCENT AUTO 71.8 % (42.2-75.2); PLATELET COUNT,PLT 233 10^3/uL (150-450); RED BLOOD CELL COUNT 4.74 10^6/uL (4.2-5.4); WHITE BLOOD CELL COUNT,WBC 9.3 10^3/uL (5.0-10.0)
[2024-02-21 16:09] LABS: ALBUMIN 3.9 g/dL (3.4-5.0); ANION GAP 12.9 mEq/L (7-13); BILIRUBIN TOTAL 0.7 mg/dL (0.2-1.0); BUN/CREATININE RATIO 11.8 (No establ ref range); CALCIUM 9.3 mg/dL (8.5-10.1); CREATININE 0.76 mg/dL (0.55-1.02); EST CRCL DRUG DOSING (CG) 99.41 mL/min; MAGNESIUM 1.8 mg/dL (1.8-2.4); POTASSIUM,K 3.9 mmol/L (3.5-5.1); PROTEIN TOTAL,TP 7.9 g/dL (6.4-8.2)
[2024-02-21] MEDS: Metoclopramide 10 MG/2 ML SDV IVPUSH ONE (16:24)
[2024-02-21] MEDS: Sodium Chloride 0.9% 1,000 ML IV ONE (16:24)
[2024-02-21] MEDS: Lidocaine 2% 20 ML MDV ONE (16:26)
== END 2024-02-21 17:13 | disposition home or self-care (01) ==
LOC: DL.ED 15:06
DX: O99.351 Diseases of the nervous system complicating pregnancy, first trimester (principal); G43.909 Migraine, unspecified, not intractable, without status migrainosus; Z3A.09 9 weeks gestation of pregnancy; Z86.16 Personal history of COVID-19; Z79.899 Other long term (current) drug therapy
CPT/HCPCS: 36415; 80053; 82150; 83690; 83735; 84703; 85025; 96361; 96374; 99283; 99284-25; J2765; J3490; J7030

== ENCOUNTER 2024-07-05 09:28 | Emergency (ER) | payer MEDICAID, OTHER ==
[2024-07-05 10:22] LABS: BASOPHILS PERCENT AUTO 0.2 % (0.0-1.0); EOSINOPHILS PERCENT AUTO 0.3 % (1.0-3.0); HEMATOCRIT 35.2 % (37.0-47.0); HEMOGLOBIN 11.7 g/dL (12.0-16.0); LYMPHOCYTES PERCENT AUTO 6.1 % (20.5-50.1); MEAN CORPUSCULAR HEMOGLOBIN 29.2 pg (27.0-34.0); MEAN CORPUSCULAR HGB CONC 33.2 g/dL (33.0-35.0); MEAN CORPUSCULAR VOLUME 87.8 fL (80-100); MONOCYTES PERCENT AUTO 5.9 % (2-8); NEUTROPHILS PERCENT AUTO 87.5 % (42.2-75.2); PLATELET COUNT,PLT 214 10^3/uL (150-450); RED BLOOD CELL COUNT 4.01 10^6/uL (4.2-5.4); WHITE BLOOD CELL COUNT,WBC 9.3 10^3/uL (5.0-10.0)
[2024-07-05] MEDS: Metoclopramide 10 MG/2 ML SDV IM ONE (10:27)
[2024-07-05] MEDS: Acetaminophen 500 MG Tab PO ONE (10:27)
[2024-07-05] MEDS: Ondansetron 4 MG Tab.DIS PO ONE (10:27)
[2024-07-05 10:28] LABS: APPEARANCE,URINE SLIGHTLY CLOUDY (CLEAR); BILIRUBIN,URINE NEGATIVE (NEGATIVE); COLOR,URINE YELLOW (YELLOW); GLUCOSE,URINE NEGATIVE (NEGATIVE); KETONES,URINE >=160 (NEGATIVE); LEUKOCYTE ESTERASE,URINE NEGATIVE (NEGATIVE); NITRITE,URINE NEGATIVE (NEGATIVE); OCCULT BLOOD,URINE TRACE-INTACT (NEGATIVE); PROTEIN,URINE TRACE (NEGATIVE)
[2024-07-05] MEDS: Vitamin B6-pyridOXINE 100 MG Tab PO ONE (10:30)
[2024-07-05 10:42] LABS: A/G RATIO 0.65; ALANINE AMINOTRANSFERASE,ALT 14 U/L (14-59); ALKALINE PHOSPHATASE 106 U/L (46-116); ANION GAP 18.5 mEq/L (7-13); ASPARTATE AMNIOTRANSFERASE,AST 14 U/L (15-37); BILIRUBIN TOTAL 0.5 mg/dL (0.2-1.0); BLOOD UREA NITROGEN,BUN 6 mg/dL (7-18); BUN/CREATININE RATIO 9.8 (No establ ref range); CALCIUM 8.8 mg/dL (8.5-10.1); CARBON DIOXIDE,CO2 21 mmol/L (21-32); CHLORIDE,CL 102 mmol/L (98-107); CREATININE 0.61 mg/dL (0.55-1.02); ESTIMATED GFR 128 mL/min (>=60); GLUCOSE RANDOM 92 mg/dL (70-99); LIPASE 26 U/L (16-77); POTASSIUM,K 3.5 mmol/L (3.5-5.1); PROTEIN TOTAL,TP 7.6 g/dL (6.4-8.2); SODIUM,NA 138 mmol/L (136-145)
[2024-07-05 10:50] LABS: BACTERIA,URINE MODERATE /HPF (0-FEW/HPF); EPITHELIAL CELLS,URINE MANY /HPF (NOT SEEN); MUCUS,URINE MODERATE /LPF (NOT SEEN)
[2024-07-05 10:51] LABS: AMORPHOUS SEDIMENT,URINE FEW /HPF (NOT SEEN); RBC,URINE 0-5 /HPF (0-5); WBC,URINE 0-5 /HPF (0-5/HPF)
[2024-07-05] MEDS: Oseltamivir 75 MG Cap PO ONE (10:57)
[2024-07-05 11:19] VITALS: BP 100/69; PULSE 121
== END 2024-07-05 11:19 | disposition home or self-care (01) ==
LOC: DL.ED 09:28
DX: O99.513 Diseases of the respiratory system complicating pregnancy, third trimester (principal); J10.1 Influenza due to other identified influenza virus with other respiratory manifestations; Z86.16 Personal history of COVID-19; Z90.49 Acquired absence of other specified parts of digestive tract; Z79.899 Other long term (current) drug therapy; Z3A.28 28 weeks gestation of pregnancy
CPT/HCPCS: 36415; 80053; 81001; 83690; 85025; 87428; 96372; 99284; A9270; J2765